=== PATIENT | female | born 1950 | race Caucasian/White ===

== ENCOUNTER → 2021-03-10 01:16 | Outpatient (CLI) | payer MEDICARE, SELFPAY ==
[2021-03-10 18:48] LABS: SARS-CoV-2 RNA PCR Negative
== END ==
PROVIDERS: Visit Provider Plastic Surgery
DX: Z01.812 Encounter for preprocedural laboratory examination (principal); Z20.822 Contact with and (suspected) exposure to COVID-19
CPT/HCPCS: C9803; U0003; U0005

== ENCOUNTER 2021-03-10 08:18 | Outpatient (CLI) | payer MEDICARE, SELFPAY ==
--- NOTE | 2021-03-10 09:00 | ECG_ITS ---
Measurements Intervals [place] Rate: 79 P: 29 MD: 227 QRS: -10 QRSD: 92 T: 18 QT: 360 QTc: 414 Interpretive Statements SINUS RHYTHM WITH FIRST DEGREE AV BLOCK VENTRICULAR PREMATURE COMPLEX LOW QRS VOLTAGE IN PRECORDIAL LEADS BORDERLINE R WAVE PROGRESSION, ANTERIOR LEADS BASELINE ARTIFACT- I, II, III, AVR, AVL, AVF ABNORMAL ECG Electronically Signed On 03-10-2021 8:48:09 CDT by Roman Juarez D.O.
[2021-03-11 10:31] LABS: Anion Gap 6 mmol/L (8-16); Blood Urea Nitrogen 18 mg/dL (7-17); Calcium 9.7 mg/dL (8.4-10.2); Carbon Dioxide 27 mmol/L (22-30); Chloride 105 mmol/L (98-107); Estimated Glomerular Filt Rate > 60; Glucose 100 mg/dL (65-105); Potassium 4.1 mmol/L (3.4-5.0); Sodium 138 mmol/L (137-145)
== END 2021-03-10 08:19 | disposition home or self-care (01) ==
LOC: ANHSURGERY 08:23
PROVIDERS: Anesthesiology; Visit Provider Plastic Surgery
DX: Z01.818 Encounter for other preprocedural examination (principal); I10 Essential (primary) hypertension; Z51.81 Encounter for therapeutic drug level monitoring; Z79.899 Other long term (current) drug therapy; I44.30 Unspecified atrioventricular block
CPT/HCPCS: 36415; 80048; 93005; C9803; U0003; U0005

== ENCOUNTER 2021-03-13 01:33 | Day surgery (SDC) | payer MEDICARE, SELFPAY ==
[2021-03-04 12:53] VITALS: BMI 49.8
--- NOTE | 2021-03-12 12:47 | WPDANESEPPF ---
Anes - Initial Pre Proc Eval Procedure: Operation Date: 03/13/21 08:30 Proposed Procedures p Excision Of Basal Cell Carcinoma, Left Nasal Lobule With Frozen Section And Full Thickness Skin Graft Or Local Tissue Transfer - Braeden Ellison MD Date/Time: 03/12/21 12:47 Surgeon: Braeden Ellison MD Pre Op Diagnosis: basal cell carcinoma, left nasal l'ovule Patient Data Age: 70 Gender: F Height: 1.59 m Weight: 125.45 kg Allergies Allergy/AdvReac Type Severity Reaction Status Date / Time amoxicillin Allergy Severe Hives Verified 03/13/21 07:05 adhesive tape AdvReac Intermediate BLISTERS Verified 03/13/21 07:05 bacitracin AdvReac Mild BLISTERS & Verified 03/13/21 07:05 [From Triple Antibiotic] RASH hydrogen peroxide AdvReac Mild Rash Verified 03/13/21 07:05 neomycin AdvReac Mild BLISTERS & Verified 03/13/21 07:05 [From Triple Antibiotic] RASH polymyxin B AdvReac Mild BLISTERS & Verified 03/13/21 07:05 [From Triple Antibiotic] RASH Home Medications Medication Instructions Recorded Confirmed Type cholecalciferol (vitamin D3) 125 mcg PO DAILY 03/04/21 03/13/21 History [Vitamin D3] cyanocobalamin (vitamin B-12) 1,000 mcg PO DAILY 03/04/21 03/13/21 History diphenhydramine HCl [Benadryl] 50 mg PO HS PRN 03/04/21 03/13/21 History furosemide 20 mg QAM 03/04/21 03/13/21 History hydrocodone-acetaminophen 1 tablet PO Q6H PRN 03/04/21 03/04/21 History losartan 100 mg QAM 03/04/21 03/13/21 History ropinirole 2 mg HS 03/04/21 03/13/21 History sour hutchison extract [Tart Hutchison 1,200 mg PO QAM 03/04/21 03/13/21 History Extract] Patient hx anesthesia problems: none Family hx anesthesia problems: none PMFSH Past Medical History Medical History (Updated 03/12/21 @ 12:48 by John Larson MD) Arthritis HTN (hypertension) Morbid obesity with BMI of 45.0-49.9, adult LINNETTE (obstructive sleep apnea) Social History Social History Smoking status: Never smoker Second hand tobacco smoke exposure: No Alcohol intake: never Substance use: never Substance use type: does not use Living arrangements: with family Spiritual care concerns: No Anes - Eval Final PreProcedure Day of Procedure 03/12/21 12:47 Patient weight: morbidly obese Heart: regular rate and rhythm Lungs: clear to auscultation and normal air movement Airway: Mallampati scale class II Neurological: alert and oriented Last oral intake: >/= 8 hours ASA classification: III Emergent: no Anesthetic plan: proceed Anesthesia type and monitoring: general GIVS and LMA Informed Consent: The patient's anesthetic plan and its attendant risks and benefits were discussed with the patient/family/POA. Questions were solicited and answers provided to the satisfaction of the patient/family/POA.
[2021-03-13 07:12] VITALS: BP 111/61; PULSE 90; RESP 20; TEMP 36.8; O2SAT 94
[2021-03-13] MEDS: LACTATED RINGERS 1,000 ML 30 ML IV CONT ×2 (07:15→10:06)
--- NOTE | 2021-03-13 07:16 | WPDHPUPDATE1 ---
History and Physical Update Update Date/Time: 03/13/21 07:16 The neoplasm is on the left nasal lobule. History and Physical has been reviewed, including an updated exam of the patient. There are NO changes in the patient's condition. Risks, benefits, and alternatives have been discussed and questions answered. Patient agrees to proceed with procedure.
[2021-03-13] MEDS: LIDO 1%/EPINEPHRINE 1:100,000 50 ML VIAL INFILTRATE (08:50)
[2021-03-13 10:06] VITALS: BP 126/68; PULSE 98; RESP 20; TEMP 36.7; O2SAT 95
--- NOTE | 2021-03-13 10:29 | P.OPB_ITS ---
Procedure Note - Brief Procedure Note - Brief Date of procedure: 03/13/21 Pre-op diagnosis: basal cell carcinoma, left nasal l'ovule Post-op diagnosis: same Procedure performed: 1.5 cm excision of BCC of right nasal lobule with FS x2 and complex repair 3 cm. Anesthesia: MAC Surgeon: Braeden Ellison MD Cementer Machine: Larissa Estimated blood loss (mL): 5 Drains: No Packing: No Complications: No immediate complications Condition: stable Disposition: same day
[2021-03-13 10:30] VITALS: BP 124/62; PULSE 96; RESP 20
[2021-03-13 11:00] VITALS: BP 120/65; PULSE 90; RESP 20
--- NOTE | 2021-03-13 12:12 | PM.PROC ---
Procedure Note - Detailed Date of procedure: 03/13/21 Pre-op diagnosis: basal cell carcinoma, left nasal l'ovule Post-op diagnosis: same Procedure performed: 1.5 cm excision of basal cell carcinoma of the left nasal lobule with frozen section x2 and complex repair 3 cm Description of procedure: The site on the left nasal lobule was marked in the holding area. This was compared to a line drawn on history and physical. Patient was taken to the operating room and placed supine on the operating table. A time-out was held and confirmed. She was given sedation anesthesia. The entire face and left neck were prepped and draped in usual fashion. The site of the tumor was carefully examined and marked for excision. This region was widely infiltrated with 1% lidocaine with epinephrine the the full-thickness skin ellipse was taken as marked just to the level of the subcutaneous tissue. Most superior aspect was marked with a suture for 12:00 o'clock. The pathologist revealed that the 6:00 a.m. margin was positive. A 2nd ellipse of skin was taken from the 5 to 7 margin was sent to pathology. The new 6:00 a.m. margin indicated. The report from that was that the margins were free. The oblong nature of this defect suggested linear closure. Patient has some deformity to the nasal lobule with the caudal septum deviated to the left and the lobule to the right. A paramedian linear closure was designed with 2 cm undermining across the midline of the nose. There was no undermining on the left side. Intradermal 4-0 Vicryl was then placed to approximate the wound edges and this seemed to work nicely with the shape of her nose and to correct some of the deviation of the upper lobule. Standing cones were removed at both ends and the wound was further approximated with 4-0 Vicryl and running 6 0 nylon. Vaseline was applied to the sutures. The patient has allergy to common topical antibiotics. She also has hydrocodone at home for regular use. Anesthesia: GLMA Surgeon: Braeden Ellison MD Salesperson Surgical Appliances: Larissa Estimated blood loss (mL): 5 Drains: No Packing: No Pathology: yes Complications: No immediate complications Condition: stable Disposition: same day
== END 2021-03-13 11:14 | disposition home or self-care (01) ==
PROVIDERS: Visit Provider Plastic Surgery
PROC: (CPT 11642; principal; 2021-03-13 08:30)
DX: C44.311 Basal cell carcinoma of skin of nose (principal); I10 Essential (primary) hypertension; G47.33 Obstructive sleep apnea (adult) (pediatric); E66.01 Morbid (severe) obesity due to excess calories; Z68.43 Body mass index [BMI] 50.0-59.9, adult
CPT/HCPCS: 11642; 13152; 88305; 88331; A9270; J2370; J2704; J3010; J7120

== ENCOUNTER 2023-09-06 10:22 | Outpatient (CLI) | payer MEDICARE, SELFPAY ==
[2023-09-06 11:05] LABS: Anion Gap 7 mmol/L (8-16); Blood Urea Nitrogen 23 mg/dL (7-17); Carbon Dioxide 30 mmol/L (22-30); Chloride 102 mmol/L (98-107); Estimated Glomerular Filt Rate > 60; Glucose 105 mg/dL (65-110); Potassium 4.3 mmol/L (3.4-5.0); Sodium 139 mmol/L (137-145)
== END 2023-09-06 10:23 | disposition home or self-care (01) ==
LOC: ANHSURGERY 10:33
PROVIDERS: Anesthesiology; Visit Provider Plastic Surgery
DX: Z01.818 Encounter for other preprocedural examination (principal); Z79.899 Other long term (current) drug therapy
CPT/HCPCS: 36415; 80048

== ENCOUNTER 2023-09-09 00:57 | Day surgery (SDC) | payer MEDICARE, SELFPAY ==
[2023-09-03 13:35] VITALS: BMI 50.8
--- NOTE | 2023-09-03 13:36 | PC.NURSE ---
Report to the Outpatient Waiting Room, entrance under the green pavilion located off [facility], at time _0700_ on date _[id number]_. Planned Procedure Time: _0900_. Time changes happen often and if your time is changed the preop area will call you the afternoon before. - You and your visitor will be asked to self-screen and do not enter if you have any COVID symptoms. - A mask is optional within the hospital at this time. Patients may have clear liquids (water, carbonated beverages, clear teas, apple juice) until 3 hours prior to surgery with a maximum of 20 ounces. - No food from midnight until time of surgery Take the following medications with a SIP of water the morning of surgery: ___Pain med if needed. DO NOT STOP ANY OF YOUR OTHER PRESCRIPTION MEDICATIONS PRIOR TO SURGERY ?EXCEPT THE FOLLOWING Medications to discontinue per physician All vitamins Date to take last crmg___[id number] Please no make-up, nail pashto, hairspray, perfume, deodorant, or body powder the day of surgery. No jewelry (including any body piercings) or valuables the day of surgery, leave them at home. Please take a shower or bath the night before, or the morning of, surgery with an antibacterial soap. Wear comfortable, loose fitting clothing. - Jewelry must be removed prior to entering the operating room. Rings and piercings that are not removed may be cut off. - The hospital will not accept responsibility for valuables. - Please leave all valuables, including medications, at home the day of surgery. If you are going home after surgery, a licensed local company flatbed truck driver must drive you home. - NO public transportation without another adult if you receive anesthesia. - We recommend that an adult stay with you for 24 hours following discharge. - We also recommend that you do not drive, make important decision, drink alcoholic beverages, or take any drugs that were not prescribed by your health care provider for at least 24 hours after your discharge time. Follow any additional instructions given to you from your surgeon. If you or anyone in your household have experienced Covid symptoms in the past week, please notify your surgeon or the nurse liaison at the phone number below for possible testing. Telephone instructions given to __Sue___and asked if any additional questions and then verbalized understanding. Patient advised to call surgeon office or pre surgery nurse liaison [phone] if any additional questions.
--- NOTE | 2023-09-09 07:12 | WPDHPUPDATE1 ---
History and Physical Update Update Date/Time: 09/09/23 07:12 History and Physical has been reviewed, including an updated exam of the patient. There are NO changes in the patient's condition. Risks, benefits, and alternatives have been discussed and questions answered. Patient agrees to proceed with procedure.
[2023-09-09] MEDS: LACTATED RINGERS 1,000 ML 30 ML IV CONT (07:48)
[2023-09-09 08:00] VITALS: BP 125/58; PULSE 84; RESP 16; TEMP 36.2; O2SAT 100
--- NOTE | 2023-09-09 08:48 | WPDANESEPPF ---
Anes - Initial Pre Proc Eval Procedure: Operation Date: 09/09/23 09:00 Proposed Procedures p Excision of Basal Cell Carcinoma Left Lateral Nasal Lobule with Frozen Section, Possible Full Thickness Skin Graft or Local Tissue Transfer - Braeden Ellison MD Date/Time: 09/09/23 08:48 Surgeon: Braeden Ellison MD Pre Op Diagnosis: basal cell carcinoma lft lat nasal lobule Patient Data Age: 72 Gender: F Height: 1.57 m Weight: 126.3 kg Last Vital Signs Temp 97.1 F L 09/09/23 08:00 Pulse 84 09/09/23 08:00 Resp 16 09/09/23 08:00 BP 125/58 L 09/09/23 08:00 Pulse Ox 100 09/09/23 08:00 O2 Del Method Room Air 09/09/23 08:00 Allergies Allergy/AdvReac Type Severity Reaction Status Date / Time amoxicillin Allergy Severe Hives Verified 09/09/23 07:38 adhesive tape AdvReac Intermediate BLISTERS Verified 09/09/23 07:38 bacitracin AdvReac Mild BLISTERS & Verified 09/09/23 07:38 [From Triple Antibiotic] RASH hydrogen peroxide AdvReac Mild Rash Verified 09/09/23 07:38 neomycin AdvReac Mild BLISTERS & Verified 09/09/23 07:38 [From Triple Antibiotic] RASH polymyxin B AdvReac Mild BLISTERS & Verified 09/09/23 07:38 [From Triple Antibiotic] RASH Home Medications Medication Instructions Recorded Confirmed Type cholecalciferol (vitamin D3) 125 125 mcg PO DAILY 03/04/21 09/09/23 History mcg (5,000 unit) tablet (Vitamin D3) cyanocobalamin (vitamin B-12) 1,000 mcg PO DAILY 03/04/21 09/09/23 History 1,000 mcg tablet diphenhydramine HCl 50 mg capsule 50 mg PO HS PRN Sleep 03/04/21 09/03/23 History furosemide 20 mg tablet 20 mg PO QAM 03/04/21 09/09/23 History hydrocodone 10 mg-acetaminophen 1 tablet PO Q6H PRN Pain 03/04/21 09/09/23 History 325 mg tablet losartan 100 mg tablet 100 mg PO QAM 03/04/21 09/09/23 History ropinirole 2 mg tablet 2 mg PO HS 03/04/21 09/09/23 History fluticasone propionate 50 2 spray intranasal DAILY PRN 09/03/23 09/09/23 History mcg/actuation nasal Allergy Symptoms spray,suspension multivitamin 1 tablet PO DAILY 09/03/23 09/09/23 History Patient hx anesthesia problems: none Family hx anesthesia problems: none Results Review: All pre-operative results and documents have been reviewed as part of the pre-operative evaluation. [facility] Past Medical History Medical History (Updated 03/12/21 @ 12:48 by John Larson, ) Arthritis HTN (hypertension) Morbid obesity with BMI of 45.0-49.9, adult LINNETTE (obstructive sleep apnea) Social History Social History Smoking status: Never smoker Second hand tobacco smoke exposure: No Alcohol intake: never Substance use: never Substance use type: does not use Living arrangements: with family Spiritual care concerns: No Anes - Eval Final PreProcedure Day of Procedure 09/09/23 08:48 Patient weight: super morbidly obese Heart: regular rate and rhythm Lungs: clear to auscultation Airway: Mallampati scale class II Neurological: alert and oriented Last oral intake: >/= 8 hours ASA classification: III Emergent: no Anesthetic plan: proceed Anesthesia type and monitoring: general GIVS (may use LMA) and standard monitoring Results Review: All pre-operative results and documents have been reviewed as part of the pre-operative evaluation. Informed Consent: The patient's anesthetic plan and its attendant risks and benefits were discussed with the patient/family/POA. Questions were solicited and answers provided to the satisfaction of the patient/family/POA.
[2023-09-09] MEDS: LIDO 1%/EPINEPHRINE 1:100,000 20 ML VIAL INFILTRATE (09:14)
[2023-09-09] MEDS: ceFAZolin 3 GM/D5W 100 ML 100 ML IVPB (09:14)
[2023-09-09 10:45] VITALS: BP 100/60; PULSE 76; RESP 20; O2SAT 95
--- NOTE | 2023-09-09 10:50 | SUR.OPER ---
POST OP TAPE REMOVED FROM EYES BILATERAL AND NO BETADINE NOTED.
--- NOTE | 2023-09-09 10:59 | W.PM.PROC2 ---
Procedure Note - Detailed Date of Procedure 09/09/23 Pre-op Diagnosis basal cell carcinoma lft lat nasal lobule Post-op Diagnosis Same Procedure Performed 1 cm excision of basal cell carcinoma of the left lateral nasal lobule with frozen section and local tissue transfer 3 sq cm Surgeon Braeden Ellison MD Anesthesia MAC Indications Skin biopsy Description of Procedure The healed biopsy site on the left lateral nasal lobule was marked with patient's consent in the holding area. Questions were answered. She was taken to the operating room where she was placed supine on the operating table. She was given IV sedation with an LMA. The entire face was prepped and draped in usual fashion. A time-out was held and confirmed. The site was carefully examined under loupe magnification and a marking made for proposed excision. This area was widely infiltrated with 1% lidocaine with epinephrine. The incision was made and the most superior aspect was marked with a suture for 12 o'clock. The specimen was taken off at the superficial subcutaneous layer the specimen sent for frozen section. The pathologist revealed basal cell carcinoma with free margins. In a bilobed flap was designed and further anesthetized. It was incised elevated rotated and inset. Marginal tissue was undermined as needed. The flap was sutured with 5 0 nylon and 5 0 chromic. No intradermal sutures were used 3 the flap did not reduce the vestibule or elevate lip or other structures. The face was cleaned up and mupirocin ointment was applied to the sutures. No antibiotics were utilized. An the patient was discharged with instructions in wound care and follow-up she has a prescription Gription already at home for hydrocodone 10/325. Estimated Blood Loss 5 Drains No Packing No Pathology Yes Complications No immediate complications Condition Stable Disposition Same day
[2023-09-09 11:15] VITALS: BP 141/75; PULSE 80; RESP 20
[2023-09-09 11:43] VITALS: BP 140/58; PULSE 76; RESP 20
[2023-09-09 12:00] VITALS: BP 129/75; PULSE 75; RESP 18
== END 2023-09-09 12:00 | disposition home or self-care (01) ==
PROVIDERS: Visit Provider Plastic Surgery
PROC: (CPT 14060; principal; 2023-09-09 09:00)
DX: C44.311 Basal cell carcinoma of skin of nose (principal); I10 Essential (primary) hypertension; G47.33 Obstructive sleep apnea (adult) (pediatric); E66.01 Morbid (severe) obesity due to excess calories; Z68.43 Body mass index [BMI] 50.0-59.9, adult; Z79.891 Long term (current) use of opiate analgesic
CPT/HCPCS: 14060; 88305; 88331; A9270; J0690; J2405; J2704; J3010; J7120